=== PATIENT | female | born 1965 | race Asian ===

== ENCOUNTER 2019-04-14 13:50 | Emergency (ER) | payer OTHER ==
[~2019-04-14] VITALS: Ht 157.5 cm; Wt 81.6 kg
[2019-04-14 15:20] LABS: PLATELET COUNT 244 K/uL (152-353)
[2019-04-14 15:44] LABS: POTASSIUM 3.4 mmol/L (3.6-5.2)
[2019-04-14 18:45] VITALS: BP 132/71; TEMP 98.1
== END 2019-04-14 18:45 | disposition home or self-care (01) ==
LOC: ED 13:50
PROVIDERS: Family Medicine
DX: G89.29 Other chronic pain (principal); E87.6 Hypokalemia; E11.65 Type 2 diabetes mellitus with hyperglycemia; W18.39XA Other fall on same level, initial encounter; Y92.89 Other specified places as the place of occurrence of the external cause
CPT/HCPCS: 80053; 81000; 85027; 96372; 99283; J1815; J1885